=== PATIENT | female | born 1960 | race Caucasian/White ===

== ENCOUNTER 2024-04-08 20:23 | Emergency (ER) | payer MEDICAID, OTHER ==
[~2024-04-08] VITALS: Ht 165.1 cm; Wt 72.7 kg
[2024-04-08] MEDS ORDERED: ondansetron/PF 4mg/2ml inj IV ONE (21:30)
[2024-04-08] MEDS ORDERED: morphine 4 MG/ML inj SYRINge IV ONE (21:30)
[2024-04-08] MEDS: ondansetron 4mg rapidly disintigrating tab PO ONE (21:49)
[2024-04-08] MEDS: HYDROcodone/acetaminophen 10/325mg tab PO ONE (21:49)
[2024-04-08] MEDS: nitroGLYCERIN 1gm ointment UD TP ONE (21:49)
[2024-04-08] MEDS: ceFAZolin 1gm IM kit IM ONE (21:50)
[2024-04-08] MEDS: TETanus/Pertussis (Acell)/Diphther VAC/PF (Tdap-Adult) 0.5ml syringe IMVAC ONE (21:50)
[2024-04-08] MEDS: bacitracin 15gm ointment TP ONE (21:50)
[2024-04-08] MEDS: LIDOcaine 1% 30ml preserv. free vial IJ ONE (21:51)
[2024-04-08 22:45] VITALS: BP 140/77
[2024-04-08] MEDS ORDERED: SULF1TAB49 PO (23:03)
[2024-04-08] MEDS ORDERED: HYDR-3965 PO (23:03)
[2024-04-08 23:56] VITALS: PULSE 62; RESP 16; TEMP 98.5; O2SAT 95
== END 2024-04-08 23:57 | disposition home or self-care (01) ==
LOC: ER 20:24
DX: S62.637A Displaced fracture of distal phalanx of left little finger, initial encounter for closed fracture (principal); S61.217A Laceration without foreign body of left little finger without damage to nail, initial encounter; S80.212A Abrasion, left knee, initial encounter; S80.211A Abrasion, right knee, initial encounter; S40.812A Abrasion of left upper arm, initial encounter; S40.811A Abrasion of right upper arm, initial encounter; Z23 Encounter for immunization; W54.0XXA Bitten by dog, initial encounter; Y93.89 Activity, other specified; Y92.89 Other specified places as the place of occurrence of the external cause; Y99.8 Other external cause status
CPT/HCPCS: 12001; 73140; 90471; 90715; 96372; 99284; J0690